=== PATIENT | female | born 1965 | race Caucasian/White ===

== ENCOUNTER 2018-01-16 22:09 | Emergency (ER) | payer BC, SELFPAY ==
[2018-01-16 22:27] VITALS: BP 111/69; PULSE 71; RESP 20; TEMP 37; O2SAT 99; BMI 22.8
[2018-01-16 23:22] VITALS: PULSE 85; RESP 16; O2SAT 96
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
[2018-01-17] MEDS: predniSONE 20 MG TABLET 40 MG PO (00:09)
[2018-01-17] MEDS: ALBUTEROL/IPRATROPIUM 3 ML AMPUL INH (00:17)
[2018-01-17 00:22] VITALS: PULSE 89; O2SAT 99
[2018-01-17 00:26] VITALS: BP 121/67; PULSE 69; O2SAT 100
[2018-01-17 01:04] VITALS: BP 110/60; PULSE 67; RESP 16; O2SAT 100
[2018-01-17 01:47] VITALS: BP 110/60; PULSE 63; RESP 16; O2SAT 100
== END 2018-01-17 01:52 | disposition home or self-care (01) ==
PROVIDERS: Emergency Provider Emergency Medicine; PCP Family Medicine
DX: J45.901 Unspecified asthma with (acute) exacerbation (principal)
CPT/HCPCS: 94150; 94640; 99283

== ENCOUNTER → 2018-09-11 07:48 | Outpatient (CLI) | payer OTHER, SELFPAY ==
[2018-09-11 09:12] LABS: Add Manual Diff / Slide Review NO; Basophils Absolute Auto 0 /uL (0-100); Basophils Percent Auto 0.6 % (0-2); Eosinophils Absolute Auto 200 /uL (0-450); Eosinophils Percent Auto 3.8 % (2-4); Hematocrit 39.8 % (36-46); Hemoglobin 13.4 g/dL (12.0-16.0); Lymphocytes Absolute Auto 1500 /uL (1100-4500); Mean Corpuscular HGB Conc 33.8 % (30-36); Mean Corpuscular Hemoglobin 29.8 PG (26-34); Mean Corpuscular Volume 88.1 fL (80-100); Monocytes Absolute Auto 500 /uL (0-900); Monocytes Percent Auto 9.8 % (3-14); Neutrophils Absolute Auto 3300 /uL (1500-7000); Neutrophils Percent Auto 58.8 % (50-75); Platelet Count 241 X10^3/uL (150-400); Red Blood Cell Count 4.51 X10^6/uL (4.0-5.2); Red Cell Distribution Width 13.1 % (11.6-14.8); White Blood Cell Count 5.6 X10^3/uL (4.5-11.0)
[2018-09-11 09:39] LABS: Blood Urea Nitrogen 14 mg/dL (7-17); Calcium 9.2 mg/dL (8.4-10.2); Carbon Dioxide 27 mmol/L (22-32); Chloride 103 mmol/L (98-107); Cholesterol 214 mg/dL (140-199); Estimated Glomerular Filt Rate > 60.0 mL/min (>60); Glucose 98 mg/dL (70-100); HDL Cholesterol 76 mg/dL (40-60); HEMOLYSIS < 15 (0-50); LDL Cholesterol Calculated 125 mg/dL (<100); Potassium 4.3 mmol/L (3.4-5.1); Sodium 139 mmol/L (137-145); Triglycerides 64 mg/dL (35-150)
[2018-09-11 10:05] LABS: Thyroid Stimulating Hormone 1.13 uIU/mL (0.47-4.68)
== END ==
PROVIDERS: PCP Family Medicine; Visit Provider Family Medicine
DX: Z13.220 Encounter for screening for lipoid disorders; R89.9 Unspecified abnormal finding in specimens from other organs, systems and tissues; Z13.1 Encounter for screening for diabetes mellitus; Z13.0 Encounter for screening for diseases of the blood and blood-forming organs and certain disorders involving the immune mechanism
CPT/HCPCS: 36415; 80048; 80061; 84443; 85025

== ENCOUNTER → 2018-09-13 16:48 | Outpatient (CLI) | payer OTHER, SELFPAY ==
--- NOTE | 2018-09-13 16:49 | DI.MG.S_ITS ---
BILATERAL DIGITAL SCREENING MAMMOGRAM 3D/2D WITH CAD: 09/13/2018 CLINICAL: Routine screening. Family history of breast cancer. Comparison is made to exams dated: 08/15/2017 mammogram - [facility], 01/01/2016 mammogram, and 12/27/2014 mammogram - [facility]. The tissue of both breasts is heterogeneously dense. This may lower the sensitivity of mammography. Current study was also evaluated with a Computer Aided Detection (CAD) system. No significant masses, calcifications, or other findings are seen in either breast. There has been no significant interval change. IMPRESSION: NEGATIVE There is no mammographic evidence of malignancy. A 1 year screening mammogram is recommended. This exam was interpreted at Station ID: [id number]. NOTE: For mammograms, a report in lay terms will be sent to the patient. Approximately 15% of breast malignancies will not be visualized mammographically. In the management of a palpable breast mass, a negative mammogram must not discourage biopsy of a clinically suspicious lesion. Electronically Signed By: Flex avila/marcellus:09/14/2018 09:27:49 letter sent: Normal Exam ACR BI-RADS Category 1: Negative [id number]
== END ==
PROVIDERS: PCP Family Medicine; Visit Provider Family Medicine
DX: Z12.31 Encounter for screening mammogram for malignant neoplasm of breast (principal); Z80.3 Family history of malignant neoplasm of breast
CPT/HCPCS: 77063; 77067

== ENCOUNTER → 2018-09-23 09:20 | Outpatient (CLI) | payer OTHER, SELFPAY | PROVIDERS: PCP Family Medicine; Visit Provider Physician Assistant | DX: R68.89 Other general symptoms and signs (principal) | CPT/HCPCS: 87400 ==

== ENCOUNTER 2018-09-23 09:50 | Emergency (ER) | payer OTHER, SELFPAY ==
[2018-09-23 10:00] VITALS: BP 105/75; PULSE 72; RESP 20; TEMP 37; O2SAT 99
[2018-09-23] MEDS: SODIUM CHLORIDE 0.9% 1,000 ML 1000 ML IV ×2 (10:48→12:00)
--- NOTE | 2018-09-23 10:57 | ED.URI ---
HPI - URI/Sore Throat General Chief Complaint: Upper Respiratory Symptoms Stated Complaint: Flu symptoms,vertigo Time Seen by Provider: 09/23/18 10:33 Source: patient and old records reviewed Mode of arrival: ambulatory Limitations: no limitations History of Present Illness HPI Narrative: Patient is a 52-year-old female who presents with body aches dizziness lightheadedness. She has had flu-like symptoms for the last 3 days. Has fever of 102. She has a history of some nausea vomiting and dizziness unable to keep food and water down. She was sent over from the walk-in clinic with increased heart rate and low blood pressure. She overall does not feel good. She does also have a history of asthma she is having increasing shortness of breath. MD Complaint: fever and cough Onset (ago): day(s) (3) Able to tolerate fluids by mouth: No Context: sick contacts (Schoolteacher) Related Data Home Medications Medication Instructions Recorded Confirmed Vitamins (PRENAVITE) 1 tab PO QDAY #0 06/25/16 09/23/18 loratadine 10 mg tablet 10 mg PO DAILY 09/20/18 09/23/18 Previous Rx's Medication Instructions Recorded Spacer: Inhaler Spacer Device ea #1 01/18/17 albuterol sulfate HFA 90 2 puff INHALATION Q4HP PRN #2 inh 11/18/18 mcg/actuation aerosol inhaler fluticasone propionate 220 1 puff INHALATION BID #12 gram 10/15/18 mcg/actuation HFA aerosol inhaler fluticasone propionate 50 2 spray NASAL DAILY #15.8 gram 10/15/18 mcg/actuation nasal spray,suspension estradiol 10 mcg vaginal tablet 10 mcg VAGINAL Q DAY #60 tab 09/01/18 montelukast 10 mg tablet 10 mg PO QDAY #30 tab 09/19/18 ondansetron 4 mg PO Q6-8H PRN #10 tab 09/23/18 prednisone 20 mg PO DAILY #10 tab 09/23/18 Allergies Allergy/AdvReac Type Severity Reaction Status Date / Time No Known Drug Allergies Allergy Verified 09/23/18 09:29 Review of Systems Review of Systems ROS Unobtainable: All systems reviewed & are unremarkable except as noted in HPI and below Constitutional Reports body ache(s), Reports chills and Reports fever(s) Cardiovascular Denies chest pain, Denies irregular heart rhythm, Denies lightheadedness, Denies palpitations and Denies orthopnea Respiratory Reports as per HPI Gastrointestinal Gastrointestinal: Denies abdominal pain, Denies change in bowel habits, Denies diarrhea, Denies nausea and Denies vomiting Genitourinary Denies hematuria, Denies flank pain, Denies urinary incontinence and Denies urinary urgency Musculoskeletal Denies back pain, Denies muscle weakness, Denies numbness and Denies tingling Integumentary/Breasts Denies pruritus, Denies erythema, Denies rash and Denies wounds Neurologic Denies numbness and Denies tingling Endocrine Denies palpitations [facility] Medical History Anxiety (Chronic ~2001) Asthma (Chronic) Environmental allergies (Chronic) IBS (irritable bowel syndrome) (Chronic) PTSD (post-traumatic stress disorder) (Chronic ~2001) Abnormal Pap smear of cervix (Resolved 2012) Chicken pox (Resolved) Febrile seizures (Resolved 1963) HPV (human papilloma virus) infection (Resolved 2012) Leg fracture (Resolved 1965) Plantar warts (Resolved ~1994) Surgical History Anesthesia (Resolved) History of conization of cervix (Resolved 2012) History of third molar tooth extraction (Resolved) History of tonsillectomy (Resolved) Status post appendectomy (Resolved 1979) Family History Father Cancer Mother Age: 85 Hypertension Mental health problem TIA (transient ischemic attack) Memory problem Grandfather No problems noted. Grandmother Breast cancer Grandfather Heart attack Grandmother No problems noted. Social History Smoking Status: Never smoker Family History Father Cancer Mother Age: 85 Hypertension Mental health problem TIA (transient ischemic attack) Memory problem Grandfather No problems noted. Grandmother Breast cancer Grandfather Heart attack Grandmother No problems noted. 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 HEENT: Head atraumatic,EOMI, pupils reactive, face symmetric CARDIOVASCULAR: Regular rate and rhythm without murmurs, rubs or gallops. RESPIRATORY: Slight expiratory wheeze speaks in full sentences no respiratory distress ABDOMEN: Soft, nontender. Normoactive bowel sounds all 4 quadrants. No guarding or rebound. EXTREMITIES: Normal range of motion, no clubbing or edema. Neurovascularly intact NEUROLOGICAL: Alert and oriented x4.Normal gait and speech. Cranial nerves II through XII grossly intact. SKIN: Warm, dry, no laceration, no petechiae, no rashes or lesions. Course Orders Ordered: ED Orders 09/23/18 10:40 Complete Blood Count AUTO DIFF Stat Comprehensive Metabolic Panel Stat 09/23/18 11:03 Consult to Respiratory Therapy Evaluate & Treat XR chest 2V Stat EKG-12 Lead Stat Discontinued Medications Albuterol/Ipratropium (Duoneb) 3 ml INH NOW ONE Stop: 09/23/18 11:04 Last Admin: 09/23/18 11:08 Dose: 3 ml Sodium Chloride (Normal Saline 0.9%) 1,000 mls @ 1,000 mls/hr IV BOLUS ONE Stop: 09/23/18 11:45 Last Infusion: 09/23/18 11:59 Dose: 0 mls/hr Admin: 09/23/18 10:48 Dose: 1,000 mls/hr Sodium Chloride (Normal Saline 0.9%) 1,000 mls @ 1,000 mls/hr IV BOLUS ONE Stop: 09/23/18 12:59 Last Infusion: 09/23/18 12:46 Dose: 0 mls/hr Admin: 09/23/18 12:00 Dose: 1,000 mls/hr Vital Signs - 8 hr 09/23/18 10:00 09/23/18 11:09 09/23/18 11:13 Temperature 98.6 F Pulse Rate 72 80 77 Respiratory Rate 20 16 14 Blood Pressure 105/75 Blood Pressure [Right Arm] 114/52 L Pulse Oximetry 99 95 100 09/23/18 12:00 09/23/18 12:46 Temperature Pulse Rate 77 75 Respiratory Rate 14 13 Blood Pressure 113/64 Blood Pressure [Right Arm] 119/63 Pulse Oximetry 100 99 MDM - URI/Sore Throat Lab Data Attestation: I reviewed the patient's lab results. Result diagrams: 09/23/18 10:40 09/23/18 10:40 Lab Results 09/23/18 09/23/18 Range/Units 10:40 10:40 WBC 8.8 (4.5-11.0) X10^3/uL RBC 4.44 (4.0-5.2) X10^6/uL Hgb 13.2 (12.0-16.0) g/dL Hct 38.9 (36-46) % MCV 87.6 (80-100) fL MCH 29.8 (26-34) PG MCHC 34.0 (30-36) % RDW 12.9 (11.6-14.8) % Plt Count 211 (150-400) X10^3/uL Neut % (Auto) 85.6 H (50-75) % Lymph % (Auto) 6.7 L (25-40) % [place] % (Auto) 7.6 (3-14) % Eos % (Auto) 0.0 L (2-4) % Baso % (Auto) 0.1 (0-2) % Neut # (Auto) 7500 H (3066-4805) /uL Lymph # (Auto) 600 L (3204-5754) /uL [place] # (Auto) 700 (0-900) /uL Eos # (Auto) 0 (0-450) /uL Baso # (Auto) 0 (0-100) /uL Sodium 134 L (137-145) mmol/L Potassium 4.0 (3.4-5.1) mmol/L Chloride 103 (98-107) mmol/L Carbon Dioxide 22 (22-32) mmol/L BUN 17 (7-17) mg/dL Creatinine 0.60 (0.52-1.04) mg/dL Estimated GFR > 60.0 (>60) mL/min BUN/Creatinine Ratio 28.3 H (6-22) Glucose 134 H (70-100) mg/dL Calcium 9.1 (8.4-10.2) mg/dL Total Bilirubin 0.6 (0.2-1.3) mg/dL AST 36 (14-36) IU/L ALT 31 (9-52) IU/L Alkaline Phosphatase 62 (38-126) U/L Total Protein 7.4 (6.3-8.2) g/dL Albumin 4.4 (3.5-5.0) g/dL Globulin 3.0 (1.7-4.1) g/dL Albumin/Globulin Ratio 1.5 (1.0-2.8) Imaging Data Chest x-ray: Radiologist's impression: PROCEDURE: XR CHEST 2V INDICATIONS: cough fever TECHNIQUE: 2 views of the chest were acquired. COMPARISON: None. FINDINGS: Surgical changes and devices: None. Lungs and pleura: Lungs are clear. No pleural effusions or pneumothorax. Mediastinum: Mediastinal contours are normal. Heart size is normal. Bones and chest wall: No suspicious bony abnormalities. Soft tissues appear unremarkable. IMPRESSION: No acute cardiopulmonary disease. Dictated by: Sissy Holley M.D. on 09/23/2018 at 12:10 ECG Data Attestation: I personally reviewed and interpreted this ECG as follows: Prior ECG tracings: not available for review Interpretation: Normal sinus rhythm rate [address] changes no T-wave inversions MDM Narrative Medical decision making narrative: Patient received breathing treatment in the ED her lungs are feeling better. She is influenza positive dizziness and weakness much improved after IV fluids. At this time she is having no significant respiratory distress. I will put her on a course of steroids. Discharge Plan Departure Patient Disposition: Home Clinical Impression: Influenza Asthma Qualifiers: Asthma severity: mild Asthma persistence: intermittent Asthma complication type: with acute exacerbation Qualified Code(s): J45.21 - Mild intermittent asthma with (acute) exacerbation Discharge Date/Time: 09/23/18 12:48 Interventions: ED Discharge Assessment Last Done: 09/23/18 12:46 Instructions: DI for Influenza -- Adult Activity Restrictions/Additional Instructions: *You have been diagnosed with influenza, asthma exacerbation *What to do: Fever control, rest, fluids, expect to have fever of up to 7 days. Do not go to work until afebrile for 24 hr *Continue to take medications as directed--> sent to [facility] in [place] Zofran 4 mg every 6-8 hours if needed for nausea or vomiting Prednisone 40 mg once a day for 5 days *Follow up with your primary care provider in 2-3 days *Return to ER if you should have increasing shortness of breath, fever not controlled, not tolerating oral fluids or any new, worsening or concerning symptoms Prescriptions: New prednisone 20 mg tablet 20 mg PO DAILY Qty: 10 RF: 0 ondansetron 4 mg tablet,disintegrating 4 mg PO Q6-8H PRN (Reason: nausea and vomiting) Qty: 10 RF: 0 No Action Vitamins (PRENAVITE) 1 tab PO QDAY Qty: 0 RF: 0 Spacer: Inhaler Spacer Device Qty: 1 RF: 2 albuterol sulfate [Ventolin HFA] 90 mcg/actuation HFA aerosol inhaler 2 puff INHALATION Q4HP PRN (Reason: shortness of breath or wheezing) Qty: 2 RF: 2 fluticasone propionate [Flovent HFA] 220 mcg/actuation HFA aerosol inhaler 1 puff INHALATION BID Qty: 12 RF: 2 fluticasone propionate [Flonase Allergy Relief] 50 mcg/actuation spray,suspension 2 spray NASAL DAILY Qty: 15.8 RF: 2 estradiol [Vagifem] 10 mcg tablet 10 mcg Vaginal Q DAY Qty: 60 RF: 3 montelukast [Singulair] 10 mg tablet 10 mg PO QDAY Qty: 30 RF: 2 loratadine [Claritin] 10 mg tablet 10 mg PO DAILY RF: 0 Referrals: Amaya Franklin MD [Primary Care Provider] -
--- NOTE | 2018-09-23 11:03 | DI.RAD.S_ITS ---
PROCEDURE: XR CHEST 2V INDICATIONS: cough fever TECHNIQUE: 2 views of the chest were acquired. COMPARISON: None. FINDINGS: Surgical changes and devices: None. Lungs and pleura: Lungs are clear. No pleural effusions or pneumothorax. Mediastinum: Mediastinal contours are normal. Heart size is normal. Bones and chest wall: No suspicious bony abnormalities. Soft tissues appear unremarkable. IMPRESSION: No acute cardiopulmonary disease. Dictated by: Sissy Holley M.D. on 09/23/2018 at 12:10 Approved by: Sissy Holley M.D. on 09/23/2018 at 12:10
[2018-09-23] MEDS: ALBUTEROL/IPRATROPIUM 3 ML AMPUL INH (11:08)
[2018-09-23 11:09] VITALS: PULSE 80; RESP 16; O2SAT 95
[2018-09-23 11:13] VITALS: BP 114/52; PULSE 77; RESP 14; O2SAT 100
[2018-09-23 11:15] LABS: Add Manual Diff / Slide Review NO; Basophils Absolute Auto 0 /uL (0-100); Basophils Percent Auto 0.1 % (0-2); Eosinophils Absolute Auto 0 /uL (0-450); Hematocrit 38.9 % (36-46); Hemoglobin 13.2 g/dL (12.0-16.0); Lymphocytes Absolute Auto 600 /uL (1100-4500); Lymphocytes Percent Auto 6.7 % (25-40); Mean Corpuscular Hemoglobin 29.8 PG (26-34); Mean Corpuscular Volume 87.6 fL (80-100); Monocytes Absolute Auto 700 /uL (0-900); Monocytes Percent Auto 7.6 % (3-14); Neutrophils Absolute Auto 7500 /uL (1500-7000); Neutrophils Percent Auto 85.6 % (50-75); Platelet Count 211 X10^3/uL (150-400); Red Blood Cell Count 4.44 X10^6/uL (4.0-5.2); Red Cell Distribution Width 12.9 % (11.6-14.8); White Blood Cell Count 8.8 X10^3/uL (4.5-11.0)
[2018-09-23 11:27] LABS: Alanine Aminotransferase 31 IU/L (9-52); Albumin 4.4 g/dL (3.5-5.0); Albumin Globulin Ratio 1.5 (1.0-2.8); Alkaline Phosphatase 62 U/L (38-126); Aspartate Aminotransferase 36 IU/L (14-36); BUN Creatinine Ratio 28.3 (6-22); Bilirubin Total 0.6 mg/dL (0.2-1.3); Blood Urea Nitrogen 17 mg/dL (7-17); Calcium 9.1 mg/dL (8.4-10.2); Carbon Dioxide 22 mmol/L (22-32); Chloride 103 mmol/L (98-107); Estimated Glomerular Filt Rate > 60.0 mL/min (>60); Glucose 134 mg/dL (70-100); HEMOLYSIS 31 (0-50); Sodium 134 mmol/L (137-145); Total Protein 7.4 g/dL (6.3-8.2)
[2018-09-23 12:00] VITALS: BP 119/63; PULSE 77; RESP 14; O2SAT 100
[2018-09-23 12:46] VITALS: BP 113/64; PULSE 75; RESP 13; O2SAT 99
== END 2018-09-23 12:48 | disposition home or self-care (01) ==
PROVIDERS: Emergency Provider Emergency Medicine; PCP Family Medicine
DX: J11.1 Influenza due to unidentified influenza virus with other respiratory manifestations (principal); J45.21 Mild intermittent asthma with (acute) exacerbation
CPT/HCPCS: 36591; 71046; 80053; 85025; 87400; 93005; 94640; 96360; 96361; 99283; 99285

== ENCOUNTER → 2018-12-08 09:24 | Outpatient (CLI) | payer OTHER, SELFPAY | PROVIDERS: PCP Family Medicine; Visit Provider Physician Assistant | DX: J02.9 Acute pharyngitis, unspecified (principal) | CPT/HCPCS: 87070 ==

== ENCOUNTER → 2019-12-27 09:15 | Outpatient (CLI) | payer OTHER, SELFPAY ==
[2019-12-27 10:09] LABS: Add Manual Diff / Slide Review NO; Basophils Absolute Auto 0 /uL (0-100); Basophils Percent Auto 0.7 % (0-2); Eosinophils Absolute Auto 200 /uL (0-450); Hematocrit 39.7 % (36-46); Hemoglobin 13.5 g/dL (12.0-16.0); Lymphocytes Absolute Auto 1100 /uL (1100-4500); Lymphocytes Percent Auto 23.5 % (25-40); Mean Corpuscular HGB Conc 34.1 % (30-36); Mean Corpuscular Hemoglobin 30.2 PG (26-34); Mean Corpuscular Volume 88.7 fL (80-100); Monocytes Absolute Auto 400 /uL (0-900); Monocytes Percent Auto 8.6 % (3-14); Neutrophils Absolute Auto 3000 /uL (1500-7000); Neutrophils Percent Auto 62.2 % (50-75); Platelet Count 253 X10^3/uL (150-400); Red Blood Cell Count 4.48 X10^6/uL (4.0-5.2); Red Cell Distribution Width 12.5 % (11.6-14.8); White Blood Cell Count 4.9 X10^3/uL (4.5-11.0)
[2019-12-27 10:17] LABS: Hemoglobin A1C% w Est Avg Glu 5.3 % (4.0-6.0)
[2019-12-27 10:24] LABS: Alanine Aminotransferase 19 IU/L (<35); Albumin 4.4 g/dL (3.5-5.0); Albumin Globulin Ratio 1.6 (1.0-2.8); Alkaline Phosphatase 70 U/L (38-126); Aspartate Aminotransferase 25 IU/L (14-36); BUN Creatinine Ratio 21.1 (6-22); Bilirubin Total 0.5 mg/dL (0.2-1.3); Blood Urea Nitrogen 15 mg/dL (7-17); Calcium 9.5 mg/dL (8.4-10.2); Carbon Dioxide 28 mmol/L (22-32); Chloride 105 mmol/L (98-107); Cholesterol 237 mg/dL (140-199); Estimated Glomerular Filt Rate > 60.0 mL/min (>60); Globulin 2.7 g/dL (1.7-4.1); Glucose 99 mg/dL (70-100); HDL Cholesterol 61 mg/dL (40-60); HEMOLYSIS < 15 (0-50); LDL Cholesterol Calculated 151 mg/dL (<100); Potassium 4.6 mmol/L (3.4-5.1); Sodium 139 mmol/L (137-145); Total Protein 7.1 g/dL (6.3-8.2); Triglycerides 123 mg/dL (35-150)
[2019-12-27 10:52] LABS: Thyroid Stimulating Hormone 1.35 uIU/mL (0.47-4.68)
== END ==
PROVIDERS: PCP Family Medicine; Referring Provider Family Medicine; Visit Provider Family Medicine
DX: Z13.29 Encounter for screening for other suspected endocrine disorder (principal); D72.820 Lymphocytosis (symptomatic); E87.1 Hypo-osmolality and hyponatremia; N28.9 Disorder of kidney and ureter, unspecified; R73.09 Other abnormal glucose
CPT/HCPCS: 36415; 80053; 80061; 83036; 84443; 85025

== ENCOUNTER → 2020-02-05 16:09 | Outpatient (CLI) | payer OTHER, SELFPAY ==
--- NOTE | 2020-02-05 16:10 | DI.MG.S_ITS ---
BILATERAL DIGITAL SCREENING MAMMOGRAM 3D/2D WITH CAD: 02/05/2020 CLINICAL: Routine screening. Family history of breast cancer. Comparison is made to exams dated: 09/13/2018 mammogram, 08/15/2017 mammogram - [facility], 01/01/2016 mammogram, 12/27/2014 mammogram, 10/25/2013 mammogram, and 08/07/2012 mammogram - [facility]. The tissue of both breasts is heterogeneously dense. This may lower the sensitivity of mammography. Current study was also evaluated with a Computer Aided Detection (CAD) system. There is a focal asymmetry in the right breast at 7 o'clock middle depth. There is possible architectural distortion associated with the focal asymmetry. No other significant masses, calcifications, or other findings are seen in either breast. IMPRESSION: INCOMPLETE: NEEDS ADDITIONAL IMAGING EVALUATION The focal asymmetry in the right breast is indeterminate. Additional views with possible ultrasound are recommended. This exam was interpreted at Station ID: [id number]. NOTE: For mammograms, a report in lay terms will be sent to the patient. Approximately 15% of breast malignancies will not be visualized mammographically. In the management of a palpable breast mass, a negative mammogram must not discourage biopsy of a clinically suspicious lesion. Electronically Signed By: Sohail Ballesteros M.D. slc/:02/05/2020 17:26:36 letter sent: Additional Imaging Needed ACR BI-RADS Category 0: Incomplete [id number]
== END ==
PROVIDERS: PCP Family Medicine; Referring Provider Family Medicine; Visit Provider Family Medicine
DX: Z12.31 Encounter for screening mammogram for malignant neoplasm of breast (principal); Z80.3 Family history of malignant neoplasm of breast
CPT/HCPCS: 77063; 77067

== ENCOUNTER → 2020-08-12 11:15 | Outpatient (CLI) | payer OTHER, SELFPAY ==
[2020-08-12 11:44] LABS: Appearance Urine UA CLOUDY; Bilirubin Urine UA 1+ (NEGATIVE); Color Urine UA RED; Glucose Urine UA NEGATIVE (Negative); Ketones Urine UA TRACE (NEGATIVE); Leukocyte Esterase Urine UA 3+ (NEGATIVE); Nitrite Urine UA POSITIVE (Negative); Occult Blood Urine UA 3+ (Negative); Protein Urine UA 3+ (Negative); Urobilinogen Urine UA 0.2 E.U./dL (0.2)
[2020-08-12 12:06] LABS: Ictotest Urine Negative (Negative); RBC Urine >100/HPF (0-5/HPF); WBC Urine 10-30/HPF (0-5/HPF); pH Urine UA 6.5 (4.5-8.0)
[2020-08-12 12:07] LABS: Bacteria Urine Many (>30); Culture Indicated Urine Specimen Cultured
== END ==
PROVIDERS: PCP Family Medicine; Referring Provider Family Medicine; Visit Provider Family Medicine
DX: R30.0 Dysuria (principal)
CPT/HCPCS: 81003; 81015; 87086; 87186

== ENCOUNTER → 2022-03-15 07:27 | Outpatient (CLI) | payer OTHER, SELFPAY ==
[2022-03-15 12:04] LABS: Cholesterol 232 mg/dL (140-199); Glucose 91 mg/dL (70-100); HDL Cholesterol 76 mg/dL (40-60); LDL Cholesterol Calculated 143 mg/dL (<100); Triglycerides 65 mg/dL (35-150)
== END ==
PROVIDERS: PCP Family Medicine; Referring Provider Family Medicine; Visit Provider Family Medicine
DX: Z13.1 Encounter for screening for diabetes mellitus (principal); Z13.220 Encounter for screening for lipoid disorders
CPT/HCPCS: 36415; 80061; 82947

== ENCOUNTER → 2023-04-05 07:00 | Outpatient (CLI) | payer OTHER, SELFPAY ==
[2023-04-05 07:52] LABS: Cholesterol 249 mg/dL (140-199); Glucose 109 mg/dL (70-100); HDL Cholesterol 74 mg/dL (40-60); LDL Cholesterol Calculated 152 mg/dL (<100); Triglycerides 114 mg/dL (35-150)
== END ==
PROVIDERS: PCP Family Medicine; Referring Provider Family Medicine; Visit Provider Family Medicine
DX: K21.9 Gastro-esophageal reflux disease without esophagitis (principal); Z13.1 Encounter for screening for diabetes mellitus; Z13.220 Encounter for screening for lipoid disorders; Z79.899 Other long term (current) drug therapy
CPT/HCPCS: 36415; 80061; 82947

== ENCOUNTER → 2023-05-25 13:39 | Outpatient (CLI) | payer OTHER, SELFPAY | PROVIDERS: PCP Family Medicine; Referring Provider Family Medicine; Visit Provider Family Medicine | DX: R00.2 Palpitations (principal) | CPT/HCPCS: 93246 ==

== ENCOUNTER → 2024-04-11 08:50 | Outpatient (CLI) | payer OTHER, SELFPAY ==
[2024-04-11 09:42] LABS: Add Manual Diff / Slide Review NO; Basophils Absolute Auto 0 /uL (0-100); Eosinophils Absolute Auto 200 /uL (0-450); Eosinophils Percent Auto 4.2 % (2-4); Hematocrit 40.8 % (36-46); Hemoglobin 13.7 g/dL (12.0-16.0); Lymphocytes Absolute Auto 1100 /uL (1100-4500); Lymphocytes Percent Auto 21.6 % (25-40); Mean Corpuscular HGB Conc 33.7 % (30-36); Mean Corpuscular Hemoglobin 29.7 PG (26-34); Mean Corpuscular Volume 88.2 fL (80-100); Monocytes Absolute Auto 400 /uL (0-900); Neutrophils Absolute Auto 3200 /uL (1500-7000); Neutrophils Percent Auto 64.2 % (50-75); Platelet Count 270 X10^3/uL (150-400); Red Blood Cell Count 4.62 X10^6/uL (4.0-5.2); Red Cell Distribution Width 12.7 % (11.6-14.8)
[2024-04-11 09:54] LABS: Hemoglobin A1C% w Est Avg Glu 5.3 % (4.0-6.0)
[2024-04-11 10:06] LABS: Alanine Aminotransferase 26 IU/L (<35); Albumin 4.2 g/dL (3.5-5.0); Albumin Globulin Ratio 1.6 (1.0-2.8); Alkaline Phosphatase 70 U/L (38-126); Aspartate Aminotransferase 28 IU/L (14-36); BUN Creatinine Ratio 16.7 (6-22); Bilirubin Total 0.5 mg/dL (0.2-1.3); Blood Urea Nitrogen 12 mg/dL (7-17); Calcium 9.4 mg/dL (8.4-10.2); Carbon Dioxide 27 mmol/L (22-32); Chloride 104 mmol/L (98-107); Cholesterol 227 mg/dL (140-199); Estimated Glomerular Filt Rate > 60 mL/min (>60); Globulin 2.7 g/dL (1.7-4.1); Glucose 100 mg/dL (80-110); HDL Cholesterol 65 mg/dL (40-60); HEMOLYSIS < 15 (0-50); LDL Cholesterol Calculated 132 mg/dL (<100); Potassium 4.1 mmol/L (3.4-5.1); Sodium 136 mmol/L (137-145); Total Protein 6.9 g/dL (6.3-8.2); Triglycerides 151 mg/dL (35-150)
== END ==
PROVIDERS: PCP Family Medicine; Referring Provider Family Medicine; Visit Provider Family Medicine
DX: K21.9 Gastro-esophageal reflux disease without esophagitis (principal); Z13.1 Encounter for screening for diabetes mellitus; E78.5 Hyperlipidemia, unspecified
CPT/HCPCS: 36415; 80053; 80061; 83036; 85025

== ENCOUNTER 2024-09-21 09:34 | Day surgery (SDC) | payer OTHER, SELFPAY ==
[2024-09-21] VITALS (7 sets, daily range): BP systolic 99–126; BP diastolic 57–78; PULSE 57–71; RESP 11–16; TEMP 36.3–36.6; O2SAT 96–100
--- NOTE | 2024-09-21 11:18 | P.HP_ITS ---
History of Present Illness History of Present Illness Date Patient Seen: 09/21/24 Time Patient Seen: 11:18 Chief complaint: SDC Narrative: Patient has a history of pruritus ani, she has been worked up for this and discussion came about interval colonoscopy. Patient has a negative colonoscopy 10 years ago, also had 1 is a 38-year-old which was negative. The prep has been okay, patient states that it has been effective [facility] Medical History Leg fracture (1965) HPV (human papilloma virus) infection (2012) Abnormal Pap smear of cervix (2012) Chicken pox Anxiety (~2001) IBS (irritable bowel syndrome) Plantar warts (~1994) PTSD (post-traumatic stress disorder) (~2001) Febrile seizures (1963) Environmental allergies Asthma Surgical History History of conization of cervix (2012) Anesthesia Status post appendectomy (1979) History of tonsillectomy History of third molar tooth extraction Family History Father Cancer Mother Age: 91 Hypertension Mental health problem TIA (transient ischemic attack) Memory problem Grandfather No problems noted. Grandmother Breast cancer Grandfather Heart attack Grandmother No problems noted. Social History marital status: Smoking Status: Never smoker alcohol intake: current substance use type: does not use Meds Home Medications and Allergies Home Medications Medication Instructions Recorded Confirmed Type Vitamins (PRENAVITE) 1 tab PO QDAY ##0 06/25/16 09/21/24 History Spacer: Inhaler Spacer Device ea ##1 01/18/17 04/18/24 Rx loratadine 10 mg tablet (Claritin) 10 mg PO DAILY 09/20/18 09/21/24 History nebulizers #1 ea 12/21/18 04/18/24 Rx albuterol sulfate 1.25 mg/3 mL 1.25 mg (3 mL) inhalation QID PRN 02/22/20 09/21/24 Rx solution for nebulization shortness of breath or wheezing #90 mL hydrocortisone acetate 25 mg 25 mg NC DAILY #24 ea 04/18/24 09/21/24 Rx rectal suppository (Anusol-HC) albuterol sulfate 90 mcg/actuation 2 puff inhalation Q4H PRN for 06/25/24 09/21/24 Rx aerosol inhaler wheezing #17 grams estradiol 10 mcg vaginal tablet 10 mcg vaginal 2XW #24 tabs 08/08/24 09/21/24 Rx sodium,potassium,mag sulfates 17.5 See Rx Instructions PO .COMPLEX 08/15/24 Rx gram-3.13 gram-1.6 gram oral soln #354 mL (Suprep Bowel Prep Kit) fluticasone furoate 200 1 inh inhalation DAILY 09/21/24 09/21/24 History mcg/actuation blister powder for inhalation (Arnuity Ellipta) Allergies Allergy/AdvReac Type Severity Reaction Status Date / Time No Known Drug Allergies Allergy Verified 04/18/24 15:25 Review of Systems Review of Systems ROS: Yes All systems reviewed with the patient and are negative except as otherwise documented Exam Vital Signs (past 8 hours): - 09/21/24 10:25 Temperature 97.8 F Pulse Rate 71 Respiratory Rate 14 Blood Pressure 126/72 Pulse Oximetry 100 Oxygen Delivery Method Room Air Oxygen Delivery Method Room Air Narrative Exam Narrative: Alert and oriented, no acute distress, abdomen benign Const General: cooperative Orientation: alert and awake HENMT Head: normal to inspection Assessment & Plan Assessment & Plan narrative: Screening colonoscopy, planning for colonoscopy today Time-Based Coding :: [TOTAL MINUTES] spent with patient and on the chart (including review of chart, obtaining history, exam, reviewing outside data, placing orders, documenting ex am and treatment plan, and counseling patient) on [DATE]. PROFEE Human Services Supervisor Document charge(s): Yes
--- NOTE | 2024-09-21 12:08 | PM.OP.COLON ---
Operative Date/Time/Diagnoses Date of procedure: 09/21/24 Time of procedure: 12:08 Pre-op diagnosis: Screening colonoscopy Post-op diagnosis: same Procedure & Clinicians Study performed: Colonoscopy Same procedure as scheduled: Yes Indications: Screening Surgeon: Han Lam Procedure Notes SCOAP/Timeout: Performed Procedure in detail: Patient seen in the preop area, H and P updated, positive fecal occult testing. Patient reported prep was adequate. Patient brought back to procedure room, time-out was performed verifying correct patient procedure. He was given sedation. External rectal exam was performed with no identified fissures, or external hemorrhoids significance. Some excoriated skin, minor internal hemorrhoids, no obvious lesions Digital rectal exam performed with no masses or blood. Colonoscope placed, colon insufflated, adequacy of prep was adequate but not perfect the scope was passed without difficulty to the splenic flexure. Patient had a largely redundant colon. Multiple maneuvers were performed including repositioning the patient and placing abdominal pressure, we are unable to navigate beyond the splenic flexure. The scope was withdrawn with circumferential view of the colon, areas occluded by bowel prep or cleaned as much as possible. No lesions were identified upon removal of the scope. The scope was retroflexed in the rectum and no internal hemorrhoids were identified air was withdrawn from the colon, scope was withdrawn, and the patient was brought to the recovery area in stable condition. Scope withdrawal time: 10 min Findings: other findings (incomplete scope) Specimen(s): none sent Complications: none Impression: Portions of the colon screened were normal, but exam was incomplete in total. I aborted for patient's safety Post-procedure Recommendations: Colonoscopy in 5 years Follow up: as needed Disposition: PACU
== END 2024-09-21 12:58 | disposition home or self-care (01) ==
PROVIDERS: PCP Family Medicine
DX: Z12.11 Encounter for screening for malignant neoplasm of colon (principal); R19.5 Other fecal abnormalities; Z53.9 Procedure and treatment not carried out, unspecified reason
CPT/HCPCS: 45378; J2704

== ENCOUNTER 2024-11-17 08:49 | Emergency (ER) | payer OTHER, SELFPAY ==
[2024-11-17 08:57] VITALS: BP 125/71; PULSE 80; RESP 16; TEMP 36.9; O2SAT 97; BMI 24.9
[2024-11-17 08:59] VITALS: BP 125/71; PULSE 82; O2SAT 98
[2024-11-17 09:00] VITALS: PULSE 81; O2SAT 97
--- NOTE | 2024-11-17 09:18 | EKG_ITS ---
[facility] [address], [place] [address] Test Date: 2024-11-17 Pat Name: Candida Smith Department: [facility] Room: Gender: Female Solar Energy Technician: JOSE ANGEL : 1965 Requested By: Order Number: [id number] Reading MD: Jann Sánchez MD Measurements Intervals [place] Rate: 75 P: 38 [place]: 136 QRS: 91 QRSD: 92 T: 38 QT: 400 QTc: 446 Interpretive Statements Normal sinus rhythm Rightward axis Electronically Signed On 11-18-2024 8:12:40 PDT by Jann Sánchez MD
--- NOTE | 2024-11-17 09:25 | ED.ABDPAIN ---
HPI - Abdominal Pain General Chief Complaint: Abdominal Pain Stated Complaint: FEVER STOMACH PAIN Time Seen by Provider: 11/17/24 09:25 Source: patient, RN notes reviewed and old records reviewed Mode of arrival: Wheelchair Limitations: no limitations History of Present Illness HPI narrative: 58-year-old female history of asthma presents with complaint of fever for the past 2 days up to 101 F, patient noted some right lower quadrant pain. She was had this intermittently in the past but has become more persistent and constant recently. Patient states does not radiate to the flank region. Feels a little bit better if she pushes on the area. She denies any nausea or vomiting. No dysuria urgency or frequency. She has been mildly constipated. No black or bloody stools. No vaginal bleeding or discharge. Notes that she had a colonoscopy in the past which was normal. States only medications are albuterol, Ellipta and Vagifem. No known drug allergies. Patient notes had remotely surgery for appendicitis but was found to have a normal appendix and was not removed at that time. No tobacco, alcohol or recreational drugs. Dr. Franklin is their primary care physician. Related Data Home Medications Medication Instructions Recorded Confirmed Vitamins (PRENAVITE) 1 tab PO QDAY ##0 06/25/16 09/21/24 loratadine 10 mg tablet (Claritin) 10 mg PO DAILY 09/20/18 09/21/24 Previous Rx's Medication Instructions Recorded Spacer: Inhaler Spacer Device ea ##1 01/18/17 nebulizers #1 ea 12/21/18 albuterol sulfate 1.25 mg/3 mL 1.25 mg (3 mL) inhalation QID PRN 02/22/20 solution for nebulization shortness of breath or wheezing #90 mL hydrocortisone acetate 25 mg 25 mg VT DAILY #24 ea 04/18/24 rectal suppository (Anusol-HC) albuterol sulfate 90 mcg/actuation 2 puff inhalation Q4H PRN for 06/25/24 aerosol inhaler wheezing #17 grams estradiol 10 mcg vaginal tablet 10 mcg vaginal 2XW #24 tabs 08/08/24 sodium,potassium,mag sulfates 17.5 See Rx Instructions PO .COMPLEX 08/15/24 gram-3.13 gram-1.6 gram oral soln #354 mL (Suprep Bowel Prep Kit) fluticasone furoate 200 1 inh PO DAILY #30 ea 11/14/24 mcg/actuation blister powder for inhalation (Arnuity Ellipta) ciprofloxacin HCl 500 mg tablet 500 mg PO Q12H #20 tabs 11/17/24 tramadol 50 mg tablet 50 mg PO Q6H PRN pain #10 tabs 11/17/24 Allergies Allergy/AdvReac Type Severity Reaction Status Date / Time No Known Drug Allergies Allergy Verified 04/18/24 15:25 Review of Systems Review of Systems ROS Unobtainable: All systems reviewed & are unremarkable except as noted in HPI and below Patient History Medical History (Updated 11/17/24 @ 10:39 by Liz Stack DO) Leg fracture (1965) HPV (human papilloma virus) infection (2012) Abnormal Pap smear of cervix (2012) Chicken pox Anxiety (~2001) IBS (irritable bowel syndrome) Plantar warts (~1994) PTSD (post-traumatic stress disorder) (~2001) Febrile seizures (1963) Environmental allergies Asthma Surgical History History of conization of cervix (2012) Anesthesia Status post appendectomy (1979) History of tonsillectomy History of third molar tooth extraction Family History Father Cancer Mother Age: 91 Hypertension Mental health problem TIA (transient ischemic attack) Memory problem Grandfather No problems noted. Grandmother Breast cancer Grandfather Heart attack Grandmother No problems noted. Social History marital status: alcohol intake: current substance use type: does not use alcohol intake frequency: a few times a month Exam Narrative Exam Narrative: GENERAL: Alert and oriented x three, mild distress HEENT: Head normocephalic, atraumatic, EOMI, pupils reactive, face symmetric, moist mucous membranes NECK: Supple, full range of motion CARDIOVASCULAR: Regular rate and rhythm without murmurs, rubs or gallops. RESPIRATORY: Breath sounds equal bilaterally, no wheezes rales or rhonchi. ABDOMEN: Soft, tenderness from a very right lower quadrant almost inguinal region. No palpable hernia or mass noted. Normoactive bowel sounds all 4 quadrants. No guarding or rebound, rigidity, no mass, no rash or skin changes noted. : No CVA tenderness bilaterally EXTREMITIES: Normal range of motion, no clubbing or edema. Neurovascularly intact NEUROLOGICAL: Cranial nerves II through XII grossly intact. Moving all extremities SKIN: Warm, dry, no petechiae, no rashes or lesions. Initial Vital Signs Initial Vital Signs: Vital Signs Temperature 98.4 F 11/17/24 08:57 Pulse Rate 80 11/17/24 08:57 Respiratory Rate 16 11/17/24 08:57 Blood Pressure 125/71 11/17/24 08:57 Pulse Oximetry 97 11/17/24 08:57 Oxygen Delivery Method Room Air 11/17/24 08:57 Course Orders Ordered: ED Orders 11/17/24 09:06 Complete Blood Count AUTO DIFF Stat Comprehensive Metabolic Panel Stat Lipase Stat 11/17/24 09:11 EKG-12 Lead Stat 11/17/24 09:35 CT abdomen pelvis w con Stat 11/17/24 09:56 Urine Culture Stat Urine Microscopic Stat Discontinued Medications Ciprofloxacin (Ciprofloxacin 250 Mg Tablet) 500 mg PO NOW ONE Stop: 11/17/24 10:46 Last Admin: 11/17/24 10:52 Dose: 500 mg Documented By: Ketorolac Tromethamine (Ketorolac 30 Mg/Ml Vial) 15 mg IV NOW ONE Stop: 11/17/24 09:36 Last Admin: 11/17/24 09:40 Dose: 15 mg Documented By: Ondansetron HCl (Ondansetron 4 Mg/2 Ml Inj) 4 mg IV NOW PRN PRN Reason: Nausea And Vomiting Ondansetron HCl (Ondansetron 4 Mg Odt) 4 mg PO NOW PRN PRN Reason: Nausea And Vomiting Vital Signs Vital signs: Vital Signs - 8 hr 11/17/24 08:57 11/17/24 08:59 11/17/24 08:59 Temperature 98.4 F Pulse Rate 80 82 Respiratory Rate 16 Blood Pressure 125/71 125/71 Pulse Oximetry 97 98 Oxygen Delivery Method Room Air 11/17/24 09:00 11/17/24 09:30 11/17/24 10:03 Temperature Pulse Rate 81 79 74 Respiratory Rate 21 Blood Pressure Pulse Oximetry 97 97 99 Oxygen Delivery Method 11/17/24 10:04 11/17/24 10:04 Temperature Pulse Rate 72 Respiratory Rate 16 Blood Pressure 117/56 L Pulse Oximetry 98 Oxygen Delivery Method MDM - Abdominal Pain Lab Data 11/17/24 09:06 11/17/24 09:06 Labs: Lab Results 11/17/24 11/17/24 Range/Units 09:06 09:56 WBC 8.9 (4.5-11.0) X10^3/uL RBC 4.61 (4.0-5.2) X10^6/uL Hgb 13.9 (12.0-16.0) g/dL Hct 40.0 (36-46) % MCV 86.7 (80-100) fL MCH 30.1 (26-34) PG MCHC 34.8 (30-36) % RDW 12.9 (11.6-14.8) % Plt Count 230 (150-400) X10^3/uL Neut % (Auto) 82.1 H (50-75) % Lymph % (Auto) 8.3 L (25-40) % Bowman % (Auto) 8.7 (3-14) % Eos % (Auto) 0.7 L (2-4) % Baso % (Auto) 0.2 (0-2) % Neut # (Auto) 7300 H (9057-6826) /uL Lymph # (Auto) 700 L (0644-6488) /uL Bowman # (Auto) 800 (0-900) /uL Eos # (Auto) 100 (0-450) /uL Baso # (Auto) 0 (0-100) /uL Sodium 136 L (137-145) mmol/L Potassium 4.1 (3.4-5.1) mmol/L Chloride 105 (98-107) mmol/L Carbon Dioxide 24 (22-32) mmol/L BUN 15 (7-17) mg/dL Creatinine 0.73 (0.52-1.04) mg/dL Estimated GFR > 60 (>60) mL/min BUN/Creatinine Ratio 20.5 (6-22) Glucose 129 H (70-99) mg/dL Calcium 9.1 (8.4-10.2) mg/dL Total Bilirubin 0.5 (0.2-1.3) mg/dL AST 29 (14-36) IU/L ALT 33 (<35) IU/L Alkaline Phosphatase 74 (38-126) U/L Total Protein 7.5 (6.3-8.2) g/dL Albumin 4.5 (3.5-5.0) g/dL Globulin 3.0 (1.7-4.1) g/dL Albumin/Globulin Ratio 1.5 (1.0-2.8) Lipase 35 (23-300) U/L Urine RBC None seen (0-5/HPF) Urine WBC 10-30/hpf H (0-5/HPF) Ur Squamous Epith Cells 1-5 /hpf (0-5/HPF) Urine Bacteria Few (2-10) H (None) Ur Culture Indicated? Specimen cultured Vol Urine Centrifuged 10ml (spun) Point of care testing: Urine Dip Bedside Urine Glucose Negative Bedside Urine Bilirubin - Negative Bedside Urine Ketone - Negative Urine Specific [place] 1.015 Bedside Urine Occult Blood - Negative Bedside Urine pH 6.5 Bedside Urine Protein +/- 15 Bedside Urine Urobilinogen - Negative Bedside Urine Nitrite - Negative Bedside Urine Leukocytes ++ 125 Esterase ECG Data Attestation: I personally reviewed and interpreted this ECG as follows: Interpretation: Sinus rhythm rate of 75 VT 136 QRS of 92 QTC of 446. Right axis deviation, no acute ST changes. MDM Narrative Medical decision making narrative: Labs show normal white count hemoglobin and platelets predominance of neutrophils at 82%. Chemistries shows sodium 136 otherwise appropriate electrolytes glucose of 129 LFTs are otherwise negative. Urine point of care shows protein, +leukocyte esterase. Urine micro shows no red cells 10-30 WBCs 1-5 squamous few bacteria was sent for culture. CT abdomen pelvis shows normal appendix no focal right lower quadrant inflammatory change moderate right-sided hydro with mild hydroureter no associated obstructing tone seen in the images. Pelvic varices can be seen with associated hypertrophic canal veins. EKG shows sinus rhythm. Patient had Toradol. Had moderate improvement. Spoke with the patient I suspect she was developing pyelonephritis she does not have any flank pain but it was having fevers at home with right lower quadrant pain she was afebrile here in the department we will start oral antibiotics. Discussed no visualized kidney stones negative for hematuria but if she was having worsening symptoms with the hydroureter would have her return for re-evaluation. Did note some pelvic varices but patient's symptoms do not seem consistent with this. Patient is nontoxic, does not appear septic appears appropriate for discharge home with oral medications. We will also offer a short course of oral pain medication. Discharge Plan Departure Patient Disposition: Home Clinical Impression: Pyelonephritis of right kidney Instructions: DI for Kidney Infection Activity Restrictions/Additional Instructions: Your workup today does show changes consistent with infection your kidney, there is a little bit of right-sided hydronephrosis and hydroureter or swelling of the kidney. This can sometimes occur in the setting of pyelonephritis or kidney infections. No kidney stones were visualized on your imaging today. Incidentally you had some pelvic varices noted as well these do not require any interventions they are causing pain. Take oral antibiotics until completed. This medication can sometimes cause tendon pain or tendon issues if you noticed these changes contact your primary care physician to change your antibiotic. You can take acetaminophen up to a 1000 mg every 6 hours and/or ibuprofen up to 600 mg every 6 hours as needed for pain. If inadequate for pain you can take 1-2 tablets of tramadol every 6 hours as needed. This medication can make you sleepy do not drive, perform hazardous activities or make any major decisions while taking it. This medication will make you constipated please take a stool softener once to twice daily until stools are soft and regular. Prescription sent to [facility] in [place]. Please return if you are having persistent fevers, new or worsening abdominal, back or flank pain, vomiting, difficulty with urination, black or bloody stools or other new or concerning changes. Prescriptions: New ciprofloxacin HCl 500 mg tablet 500 mg PO Q12H Qty: 20 0RF tramadol 50 mg tablet 50 mg PO Q6H PRN (Reason: pain) Qty: 10 0RF No Action Vitamins (PRENAVITE) 1 tab PO QDAY Qty: 0 Spacer: Inhaler Spacer Device Qty: 1 2RF (DME) [place] [facility] [place] Dose Instructions .ROUTE .MEDSUPPLY Qty: 1 0RF Dose Instruction: As directed Rx Instructions: Please supply patient with whichever brand of nebulizer and necessary accessories insurance will cover albuterol sulfate 1.25 mg/3 mL solution for nebulization 1.25 mg INHALATION QID PRN (Reason: shortness of breath or wheezing) Qty: 90 11RF Rx Instructions: This is RX is good for 1 year hydrocortisone acetate [Anusol-HC] 25 mg suppository 25 mg VT DAILY Qty: 24 3RF albuterol sulfate 90 mcg/actuation HFA aerosol inhaler 2 puff inhalation Q4H PRN (Reason: for wheezing) Qty: 17 0RF estradiol 10 mcg tablet 10 mcg vaginal 2XW Qty: 24 1RF Rx Instructions: Insert one tablet vaginally twice weekly-THIS IS CORRECT DOSAGE, PLEASE CANCEL PREVIOUS SCRIPT FROM 02/08/24 sodium,potassium,mag sulfates [Suprep Bowel Prep Kit] 17.5-3.13-1.6 gram recon soln See Rx Instructions PO .COMPLEX Qty: 354 0RF Rx Instructions: take as directed by Physician Adwoa Ellipta 200 mcg/actuation blister with device 1 inh PO DAILY Qty: 30 3RF loratadine [Claritin] 10 mg tablet 10 mg PO DAILY Referrals: Amaya Franklin MD [Primary Care Provider] - Stand Alone Forms: Patient Portal/API/Survey
[2024-11-17 09:29] LABS: Add Manual Diff / Slide Review NO; Basophils Absolute Auto 0 /uL (0-100); Basophils Percent Auto 0.2 % (0-2); Eosinophils Absolute Auto 100 /uL (0-450); Eosinophils Percent Auto 0.7 % (2-4); Hemoglobin 13.9 g/dL (12.0-16.0); Lymphocytes Absolute Auto 700 /uL (1100-4500); Lymphocytes Percent Auto 8.3 % (25-40); Mean Corpuscular HGB Conc 34.8 % (30-36); Mean Corpuscular Hemoglobin 30.1 PG (26-34); Mean Corpuscular Volume 86.7 fL (80-100); Monocytes Absolute Auto 800 /uL (0-900); Monocytes Percent Auto 8.7 % (3-14); Neutrophils Absolute Auto 7300 /uL (1500-7000); Neutrophils Percent Auto 82.1 % (50-75); Platelet Count 230 X10^3/uL (150-400); Red Blood Cell Count 4.61 X10^6/uL (4.0-5.2); Red Cell Distribution Width 12.9 % (11.6-14.8); White Blood Cell Count 8.9 X10^3/uL (4.5-11.0)
[2024-11-17 09:30] VITALS: PULSE 79; O2SAT 97
--- NOTE | 2024-11-17 09:35 | DI.CT.S_ITS ---
PROCEDURE: CT ABDOMEN PELVIS W CON INDICATIONS: RLQ pain, fever x 2 days, no flank pain TECHNIQUE: After the administration of intravenous contrast, axial sections acquired from the lung bases to the pubic symphysis. Coronal and sagittal reformats were performed. For radiation dose reduction, the following was used: automated exposure control, adjustment of mA and/or kV according to patient size. COMPARISON: None. FINDINGS: Image quality: Diagnostic. Lower Chest: No significant findings. ABDOMEN: Liver: No solid mass. Gallbladder: No radiopaque gallstones or wall thickening. Biliary ducts: No biliary dilation. Pancreas: No ductal dilation. Spleen: Size is within normal limits. Adrenal Glands: No adrenal nodules. Kidneys and Ureters: There is moderate right-sided hydronephrosis, with mild hydroureter. No obstructing stone is seen. No solid mass. No complex renal cystic lesion which requires follow up. Stomach and Bowel: In this patient with this given history, scrutiny is given to the appendix. The appendix is normal, as seen on series 2, image 99. No focal right lower quadrant inflammatory change is seen. Minimal sigmoid diverticulosis is seen, without findings of active diverticulitis. No significant colonic abnormality is seen. No dilated loops of small bowel are seen. Peritoneum: No abnormal intraperitoneal fluid. No free air. Ventral Wall: No significant ventral hernia. Abdominal Nodes: No retroperitoneal or mesenteric adenopathy by size criteria. Vessels: Aorta and inferior vena cava are normal in size. PELVIS: Pelvic Organs: Pelvic varices can be seen, including along the surface of the uterus. Hypertrophied gonadal veins can be seen. Bladder: No bladder wall thickening, accounting for underdistention. Pelvic Nodes: No enlarged lymph nodes. Miscellaneous: No inguinal hernias are seen. Bones: No aggressive osseous abnormality. IMPRESSION: Normal appendix. No focal right lower quadrant inflammatory change. There is moderate right-sided hydronephrosis, with mild hydroureter. No associated obstructing stone is seen on these images. Pelvic varices can be seen, with associated hypertrophied canal veins. Dictated by: Alcides Moreno M.D. on 11/17/2024 at 9:08 Approved by: Alcides Moreno M.D. on 11/17/2024 at 9:12
[2024-11-17] MEDS: KETOROLAC 30 MG/ML VIAL 15 MG IV (09:40)
[2024-11-17 10:00] LABS: Alanine Aminotransferase 33 IU/L (<35); Albumin 4.5 g/dL (3.5-5.0); Albumin Globulin Ratio 1.5 (1.0-2.8); Alkaline Phosphatase 74 U/L (38-126); Aspartate Aminotransferase 29 IU/L (14-36); BUN Creatinine Ratio 20.5 (6-22); Bilirubin Total 0.5 mg/dL (0.2-1.3); Blood Urea Nitrogen 15 mg/dL (7-17); Calcium 9.1 mg/dL (8.4-10.2); Carbon Dioxide 24 mmol/L (22-32); Chloride 105 mmol/L (98-107); Estimated Glomerular Filt Rate > 60 mL/min (>60); Glucose 129 mg/dL (70-99); HEMOLYSIS < 15 (0-50); Lipase 35 U/L (23-300); Potassium 4.1 mmol/L (3.4-5.1); Sodium 136 mmol/L (137-145); Total Protein 7.5 g/dL (6.3-8.2)
[2024-11-17 10:03] VITALS: PULSE 74; RESP 21; O2SAT 99
[2024-11-17 10:04] VITALS: BP 117/56; PULSE 72; RESP 16; O2SAT 98
[2024-11-17 10:29] LABS: Bacteria Urine Few (2-10); Culture Indicated Urine Specimen Cultured; RBC Urine None Seen (0-5/HPF); Squamous Epithelial Cell Urine 1-5 /HPF (0-5/HPF); Urine Volume 10mL (spun); WBC Urine 10-30/HPF (0-5/HPF)
[2024-11-17] MEDS: CIPROFLOXACIN 250 MG TABLET 500 MG PO (10:52)
== END 2024-11-17 11:00 | disposition home or self-care (01) ==
PROVIDERS: Emergency Provider Emergency Medicine; PCP Family Medicine
DX: N12 Tubulo-interstitial nephritis, not specified as acute or chronic (principal); R10.31 Right lower quadrant pain
CPT/HCPCS: 36415; 74177; 80053; 81003; 81015; 83690; 85025; 87086; 93005; 96374; 99284; J1885; Q9967